=== PATIENT | male | born 1970 | race Caucasian/White ===

== ENCOUNTER 2021-06-28 10:08 | Emergency (ER) | payer OTHER, SELFPAY ==
[2021-06-28 10:58] VITALS: BP 146/88; PULSE 73; RESP 18; TEMP 36.2; O2SAT 99
--- NOTE | 2021-06-28 11:33 | ED.URI ---
HPI - URI/Sore Throat General Chief Complaint: Upper Respiratory Infection Stated Complaint: sorethroat Time Seen by Provider: 06/28/21 11:33 Source: patient, RN notes reviewed and old records reviewed Mode of arrival: ambulatory Limitations: no limitations History of Present Illness HPI Narrative: 51-year-old male who presents to [facility] with complaints of showing positive for Covid on Thursday with acute throat pain today. Patient states he is coughing, has headache, his ears hurt, has had some diarrhea fevers and chills and body aches. Patient reports he has taken Tylenol and ibuprofen [id number] alternating and has used throat sprays with no relief of his throat pain. Patient states he feels like he is swollen in his throat and is concerned. Patient does have copious amounts of postnasal drainage noted on examination with acute redness to throat with uvula enlarged and red. MD elicited complaint: fever, cough, sore throat, rhinorrhea, nasal congestion and other (Ear pain, body aches, chills) Onset (ago): day(s) (4-5 days of symptoms) Related Data Home Medications Medication Instructions Recorded Confirmed telmisartan 20 mg PO DAILY 06/28/21 06/28/21 Allergies Allergy/AdvReac Type Severity Reaction Status Date / Time azithromycin AdvReac Intermediate Gastrointestinal Verified 06/28/21 11:48 Upset erythromycin base AdvReac Intermediate Gastrointestinal Verified 06/28/21 11:49 Upset Review of Systems Review of Systems: CONSTITUTIONAL: Positive fever, chills, or sweats. EYES: Denies visual changes, redness, or discharge. ENT: Positive rhinorrhea, congestion, sore throat, or otalgia. CARDIOVASCULAR: Denies chest pain, palpitations, or edema. RESPIRATORY: Positive cough cough no dyspnea. GASTROINTESTINAL: Denies abdominal pain, nausea, vomiting, some diarrhea. GENITOURINARY: Denies dysuria or hematuria. SKIN: Denies rash or itching. MUSCULOSKELETAL: Denies back pain, joint pain, or myalgia. NEUROLOGIC: Positive headache, numbness, or weakness. Positive for body aches PSYCHIATRIC: Denies anxiety or depression. All systems reviewed & are unremarkable except as noted in HPI and below PMFSH Past Medical History Medical History (Updated 06/28/21 @ 22:44 by Briseyda L. Radha, [employer]) COVID-19 Hypertension Social History Social History (Updated 06/28/21 @ 11:53 by Briseyda Garcia NP) Smoking status: Never smoker Substance use: never Living arrangements: with family Gender identity (if verbalized by the patient): Male Comments At time of signature, agree with nursing past medical, surgical, social and family history. There is no relevant family history pertinent to the presenting complaint Exam Narrative: GENERAL: ill-appearing, well-nourished, and in no acute distress. HEAD: Normocephalic, atraumatic. EYES: PERRLA and EOMI. ENT: Nares red with clear rhinorrhea no epistaxis. Mucous membranes moist. TMs normal with dull light reflex throat red swollen with uvula midline but enlarged and red, no exudates or lesions noted tonsils red and swollen acute pain with swallowing NECK: Supple,lymphadenopathy CHEST: Clear to auscultation. No respiratory distress. SaO2 99% on room air positive for cough HEART: Regular rate and rhythm. No murmur heard. Normal peripheral pulses. ABDOMEN: Soft, nontender, nondistended, normal active bowel sounds. EXTREMITIES: Normal range of motion. No edema. SKIN: Warm, dry, no rash. NEURO: No focal deficits. Alert and oriented x3. Course Course Level of Care: Express Care Visit Vital Signs Vital signs: Vital Signs Temperature 36.2 C L 06/28/21 10:58 Pulse Rate 73 06/28/21 10:58 Respiratory Rate 18 06/28/21 10:58 Blood Pressure 146/88 H 06/28/21 10:58 Pulse Oximetry 99 06/28/21 10:58 Temperature 36.2 C L 06/28/21 10:58 Pulse Rate 73 06/28/21 10:58 Respiratory Rate 18 06/28/21 10:58 Blood Pressure 146/88 H 06/28/21 10:58 Pulse Oximetr
== END 2021-06-28 12:08 | disposition home or self-care (01) ==
PROVIDERS: Emergency Provider Registered Nurse
DX: U07.1 COVID-19 (principal); I10 Essential (primary) hypertension
CPT/HCPCS: 87081; 87426; 87880; 99203; C9803; G0463

== ENCOUNTER 2021-08-15 16:11 | Emergency (ER) | payer OTHER, SELFPAY ==
--- NOTE | ~2021-08-15 | XR_ITS ---
EXAMINATION: XR chest 2V DATE: 08/15/2021 17:04 INDICATION: Cough TECHNIQUE: PA and lateral views of the chest are obtained. COMPARISON: None available FINDINGS: The lungs are free of acute opacities. There is no pleural effusion or pneumothorax. The ca rdiomediastinal silhouette is normal. The visualized bones and soft tissues are unremarkable. IMPRESSION: 1. No acute cardiopulmonary abnormality. Reviewed, dictated and finalized at location F. [employer] PROFESSIONAL
[2021-08-15 16:34] VITALS: BP 123/80; PULSE 86; RESP 18; TEMP 36.8; O2SAT 99
--- NOTE | 2021-08-15 16:57 | ED.URI ---
HPI - URI/Sore Throat General Chief Complaint: Upper Respiratory Infection Stated Complaint: cough,congestion,sorethroat Source: patient Mode of arrival: ambulatory Limitations: no limitations History of Present Illness HPI Narrative: 51-year-old male presents to [facility] with complaints of productive cough of green-colored phlegm, nasal congestion, chills and body aches for the past 4 days. Patient has been taking [id number] Coricidin, Mucinex and Claritin with minimal relief. Patient denies fevers. Patient reports that he was diagnosed with COVID 1 month ago. Patient does not influenza vaccinated. Patient denies sick contacts. Patient denies recent travel. Patient is a non-smoker MD elicited complaint: cough and nasal congestion Onset (ago): day(s) (4) Relieving factors: nothing Treatments prior to arrival: cold medicine Related Data Home Medications Medication Instructions Recorded Confirmed telmisartan [Micardis] 20 mg PO DAILY 08/15/21 08/15/21 Allergies Allergy/AdvReac Type Severity Reaction Status Date / Time azithromycin AdvReac Intermediate Gastrointestinal Verified 08/15/21 16:50 Upset erythromycin base AdvReac Intermediate Gastrointestinal Verified 08/15/21 16:50 Upset Review of Systems Constitutional: Constitutional: Denies chills, Denies fatigue, Denies fever(s) and Denies weakness ENT: Denies dysphagia, Denies dizziness, Denies epistaxis, Reports nasal congestion and Denies sore throat Cardiovascular: Cardiovascular: Denies chest pain Respiratory: Respiratory: Reports chest congestion, Reports cough, Denies dyspnea and Denies wheezing Gastrointestinal: Gastrointestinal: Denies abdominal pain, Denies diarrhea, Denies nausea and Denies vomiting Integumentary/Breasts: Skin/Breast: Denies rash Neurologic: Denies dizziness PMFSH Past Medical History Medical History COVID-19 Hypertension Social History Social History Smoking status: Never smoker Substance use: never Gender identity (if verbalized by the patient): Male Comments At time of signature, I agree with nursing past medical, surgical, social and family history. There is no relevant family history pertinent to the presenting complaint. Exam Const: General: no acute distress Nutritional Appearance: well nourished Orientation/consciousness: patient oriented x3 HENMT: Head: normal to inspection Ears: external ears normal, TM's normal bilaterally and EAC's normal General nose exam: Nasal discharge present clear bilateral Face and sinus: normal facial exam Mouth: Yes Normal oral and palatal mucosa present, Yes lip normal and Yes moist mucous membranes Throat: posterior oropharynx normal and uvula midline Other: Moderate nasal congestion noted Neck: Neck: normal visual inspection Resp: Effort & Inspection: normal respiratory effort, not labored and not tachypneic Auscultation: clear to auscultation bilaterally Other: Intermittent harsh nonproductive cough noted Cardio: Rate: regular rate Rhythm: regular rhythm Skin: General skin exam: normal color Rashes: no rashes Wounds: no wounds Neuro: General: patient oriented x3, moves all extremities and no meningeal signs Psych: Appearance: grossly normal Mental Status: mental status grossly normal Affect: normal affect Attitude: cooperative Thought content: Yes Normal thought content present Course Course Level of Care: Express Care Visit Vital Signs Vital signs: Vital Signs Temperature 36.8 C 08/15/21 16:34 Pulse Rate 86 08/15/21 16:34 Respiratory Rate 18 08/15/21 16:34 Blood Pressure 123/80 08/15/21 16:34 Pulse Oximetry 99 08/15/21 16:34 Temperature 36.8 C 08/15/21 16:34 Pulse Rate 86 08/15/21 16:34 Respiratory Rate 18 08/15/21 16:34 Blood Pressure 123/80 08/15/21 16:34 Pulse Oximetry 99 08/15/21 1
== END 2021-08-15 17:22 | disposition home or self-care (01) ==
PROVIDERS: Emergency Provider Nurse Practitioner Family
DX: J40 Bronchitis, not specified as acute or chronic (principal); I10 Essential (primary) hypertension; Z86.16 Personal history of COVID-19
CPT/HCPCS: 71046; 87081; 87804; 87880; 99213; G0463

== ENCOUNTER 2021-08-19 10:43 | Emergency (ER) | payer OTHER, SELFPAY ==
--- NOTE | ~2021-08-19 | XR_ITS ---
EXAMINATION: XR chest 2V DATE: 08/19/2021 11:46 INDICATION: Cough. TECHNIQUE: Frontal and lateral views of the chest were obtained. COMPARISON: Chest 2 views 08/15/2021 FINDINGS: The chest demonstrates clear lungs without pneumonia, pleural effusion, or pneumothorax. Th e heart size is normal. IMPRESSION: 1. No acute cardiopulmonary disease. Reviewed, dictated and finalized at location A. [employer]ER
--- NOTE | 2021-08-19 10:54 | ED.URI ---
HPI - URI/Sore Throat General Chief Complaint: Upper Respiratory Infection Stated Complaint: flu symptoms Time Seen by Provider: 08/19/21 11:28 Source: patient, RN notes reviewed and old records reviewed Mode of arrival: ambulatory Limitations: no limitations History of Present Illness HPI Narrative: 51-year-old male presented to express clinic for complaints of continued cough ear pain with difficulty hearing. Was seen in clinic 7 days ago was prescribed Tessalon Perles and albuterol and a Medrol Dosepak. Reports not feeling any better. Continued sinus congestion and drainage. Right ear feels full, left ear feels painful, feels like cannot hear out of that ear. Mild sore throat. Reports continued increased coughing bringing up greenish sputum at times. Reports feeling short of breath after coughing attack. Feels like he can still take a deep breath. Feels like he has crackles on right side of chest. Reports occasional wheezing. Denies chest pain or discomfort. Appetite is okay. Reports sweating during the night. Has been taking Tylenol and ibuprofen regularly. Denies muscle aches or chills. MD elicited complaint: cough, sore throat, rhinorrhea and nasal congestion Related Data Home Medications Medication Instructions Recorded Confirmed telmisartan [Micardis] 20 mg PO DAILY 08/15/21 08/19/21 Allergies Allergy/AdvReac Type Severity Reaction Status Date / Time azithromycin AdvReac Intermediate Gastrointestinal Verified 08/19/21 11:22 Upset erythromycin base AdvReac Intermediate Gastrointestinal Verified 08/19/21 11:22 Upset Review of Systems Review of Systems: CONSTITUTIONAL: Denies malaise, chills, or fever. Reports sweating at night. EYES: Denies visual changes, redness, or discharge. ENT: Reports rhinorrhea, sinus drainage, congestion, otalgia and sore throat. Left ear hurts worse than right, cannot hear out of left ear. CARDIOVASCULAR: Denies chest pain, palpitations, or edema. RESPIRATORY: Reports frequent, increased cough. Greenish sputum. Short of breath with coughing. Denies dyspnea. GASTROINTESTINAL: Denies abdominal pain, nausea, vomiting, diarrhea SKIN: Denies rash or itching. MUSCULOSKELETAL: Denies myalgia. NEUROLOGIC: Denies headache. All systems reviewed & are unremarkable except as noted in HPI and below PMFSH Past Medical History Medical History COVID-19 Hypertension Social History Social History Smoking status: Never smoker Substance use: never Gender identity (if verbalized by the patient): Male Comments At time of signature, agree with nursing past medical, surgical, social and family history. There is no relevant family history pertinent to the presenting complaint Exam Narrative: GENERAL: Well-appearing, well-nourished, male and in no acute distress. Uncomfortable due to cough and congestion. Pleasant, cooperative, and casually dressed HEAD: Normocephalic atraumatic EYES: Conjunctivae clear ENT: Nares patent, turbinates edematous and erythematous, clear discharge. Mucous membranes moist. Right rales TM pearly escobedo with dull light reflex bilaterally; no tragal tenderness. Left tympanic membrane intact erythematous mildly bulging. Left auditory canal erythematous, painful with palpation and manipulation. Oropharynx erythematous without lesions. Tonsils enlarged and without exudate, no drooling, no hoarseness, no trismus, uvula midline. Clear postnasal drip. NECK: Supple. Full range of motion. No anterior cervical or tonsillar lymphadenopathy or tenderness with palpation. CHEST: Clear to auscultation anterior and posterior. Breath sounds equal bilaterally. No wheezing, rhonchi, rales, or stridor. No respiratory distress, speaks in full sentences. Frequent coughing. HEART: Regular rate and rhythm. No murmur heard. SKIN: [place], warm, dry, no rash. NEURO: Alert and
[2021-08-19 11:00] VITALS: BP 140/88; PULSE 72; RESP 18; TEMP 36.2; O2SAT 98
== END 2021-08-19 12:42 | disposition home or self-care (01) ==
PROVIDERS: Emergency Provider Nurse Practitioner Family
DX: H66.92 Otitis media, unspecified, left ear (principal); J40 Bronchitis, not specified as acute or chronic; I10 Essential (primary) hypertension; Z86.16 Personal history of COVID-19
CPT/HCPCS: 71046; 99213; G0463